=== PATIENT | male | born 1955 | race Caucasian/White ===

== ENCOUNTER 2020-11-26 09:58 | Outpatient (CLI) | payer OTHER, SELFPAY ==
--- NOTE | ~2020-11-26 | CT_ITS ---
EXAMINATION: CT diagnostic chest wo con DATE: 11/26/2020 10:57 INDICATION: Redness of breath with cough. Abnormal findings on diagnostic imaging. TECHNIQUE: Computed tomography (CT) of the chest was performed without intravenous contrast. The dose -length product was 327.39 mGy-cm. Automated exposure control and iterative reconstruction technique were employed. COMPARISON: None FINDINGS: No significant pleural or pericardial effusion. No thoracic lymphadenopathy. There is ather osclerosis of the aorta and coronary arteries. The upper abdomen is unremarkable. There is mild emphy sema. There is apical pleural thickening/scarring. There is calcified granuloma in the right lower lo be. There are small scattered subpleural nodules measuring 2 mm or less, likely benign. No pneumothor ax. Mild thoracic spondylosis. No lytic or blastic lesions. IMPRESSION: 1. No significant thoracic abnormality. Small subpleural nodules are likely benign. Consider follow-u p CT in 12 months. Reviewed, dictated and finalized at location A. IMPRESSION: 1. No significant thoracic abnormality. Small subpleural nodules are likely brendan ign. Consider follow-up CT in 12 months.
== END 2020-11-26 09:59 | disposition home or self-care (01) ==
PROVIDERS: PCP Internal Medicine; Visit Provider Internal Medicine
DX: R91.8 Other nonspecific abnormal finding of lung field (principal)
CPT/HCPCS: 71250

== ENCOUNTER 2024-10-15 11:47 | Outpatient (CLI) | payer MEDICARE, OTHER, SELFPAY ==
--- NOTE | ~2024-10-15 | PE_ITS ---
EXAMINATION: PET skull to mid thigh DATE: 10/15/2024 14:25 INDICATION: Pulmonary nodule TECHNIQUE: Blood glucose level was 93 mg/dL. 10.493 mCi of 18-fluorodeoxyglucose (18-FDG) was adminis tered i.v. Low dose computed tomography (CT) images were acquired from the base of the brain to the p roximal thighs for attenuation correction and anatomic localization. Positron emission tomography (PE T) images were acquired in the same distribution beginning 51 minutes after injection. Images includi ng fused PET/CT images were reconstructed in axial, coronal, and sagittal planes. Automated exposure control technique was employed. The dose-length product was 1369.60mGy-cm. COMPARISON: Chest CT dated 11/26/2020 FINDINGS: Head/neck: There is symmetric increased activity in the oral cavity, palatine tonsils, parotid glands, submandi bular glands, laryngeal muscles and ocular muscles without CT correlate, likely physiologic. No patho logically enlarged or FDG avid cervical lymphadenopathy. There are 5 subcentimeter foci of increased uptake along the skin most prominent overlying the left parotid gland with maximal SUV of 5.2 which a re without correlate on the CT imaging. Chest: Mild emphysema. There are 3 new FDG avid pulmonary nodules with relatively smooth margins measuring 1 2 mm, 10 mm and 6 mm in the superior segment of the right lower lobe with maximal SUV of 6.9. Calcifi ed nodule consistent with old granulomatous disease in the posterior basilar segment of the right low er lobe. No other pulmonary nodules, pulmonary edema or pleural effusion. Heart size is normal. Ather osclerotic coronary artery calcifications. No pericardial or pleural effusion. There is FDG avid righ t hilar and.. .Mediastinal lymphadenopathy with largest lymph node/cluster of lymph nodes in the subc arinal region measuring 4.4 x 2.4 cm with maximal SUV of 21.9. Abdomen/pelvis/proximal thighs: There is mild uptake extending along the distalmost esophagus with maximal SUV of 4.1. There are 3 pe rigastric lymph nodes at the cardia of the stomach largest measuring 2.5 x 1.6 cm with maximal SUV of 7.0. There is a subtle approximately 2.5 cm hypodense and FDG avid mass in the right hepatic lobe wi th maximal SUV of 12.3. There is a second approximately 2.0 cm focus of increased uptake with maximal SUV of 11.6 at the caudate lobe without discernible correlate on the CT imaging. Enlargement of FDG avid portacaval lymph node which measures 3.2 x 2.3 cm with maximal SUV of 12.9. Cholecystectomy clip s at the gallbladder fossa. The pancreas, spleen and bilateral adrenal glands are normal. Physiolog ic renal accumulation and excretion of FDG activity in the kidneys, bladder and along portions of ure ters. Photopenic defect associated with a 4.5 cm low-attenuation left renal cyst. 6.2 x 2.5 cm divert iculum arising from the left side of the bladder. Prostatomegaly measuring 5.1 x 4.2 cm. There is het erogeneous uptake in the prostate with 3 foci of more intense uptake to the largest and most intense at the left peripheral zone with maximal SUV of 25.7 raising concern for primary prostate cancer. Mil d uptake scattered throughout the bowels without radiologic correlate, also likely physiologic. There is moderate colonic diverticulosis with a descending and sigmoid colon predominance and without zeferino cent inflammatory change to suggest diverticulitis. Musculoskeletal: Moderate cervical, thoracic and lumbar spondylosis. No suspicious lytic, blastic or abnormally FDG av id bone lesions. IMPRESSION: 1. Cluster of a 3 small FDG avid pulmonary nodules measuring 6-12 mm in the superior segment of the r ight upper lobe which could be infectious, primary malignant or metastatic in etiology. 2. Multiple enlarged and FDG avid right hilar and mediastinal lymph nodes concerning for metastatic d isease with differential including lymphoma. 3. Mild uptake along the distalmost esophagus with 3 nearby enlarged and FDG avid perigastric nodes w hich raises possibility of primary esophageal cancer and local metastatic disease. 4. 2 FDG avid hepatic masses which along with a FDG avid enlarged periportal lymph node suspicious fo r metastatic disease. The right hepatic lobe lesion would likely be the optimal site for biopsy utili zing ultrasound guidance. 5. Prostatomegaly with focal prominent increased uptake in the left peripheral zone raising concern f or prostate cancer which could represent the primary lesion but could also be coincidental. Correlate with PSA level and depending on results from liver biopsy could consider additional prostate biopsy. 6. A few indeterminate small FDG avid skin lesions without correlate on CT at the posterior neck and the most intense overlying the left parotid gland. Correlate with physical exam. Reviewed, dictated and finalized at location A. IMPRESSION: 1. Cluster of a 3 small FDG avid pulmonary nodules measuring 6-12 mm in the sup erior segment of the right upper lobe which could be infectious, primary malign ant or metastatic in etiology. 2. Multiple enlarged and FDG avid right hilar and mediastinal lymph nodes toshia rning for metastatic disease with differential including lymphoma. 3. Mild uptake along the distalmost esophagus with 3 nearby enlarged and FDG av id perigastric nodes which raises possibility of primary esophageal cancer and local metastatic disease. 4. 2 FDG avid hepatic masses which along with a FDG avid enlarged periportal ly mph node suspicious for metastatic disease. The right hepatic lobe lesion would likely be the optimal site for biopsy utilizing ultrasound guidance. 5. Prostatomegaly with focal prominent increased uptake in the left peripheral zone raising concern for prostate cancer which could represent the primary lesi on but could also be coincidental. Correlate with PSA level and depending on re sults from liver biopsy could consider additional prostate biopsy. 6. A few indeterminate small FDG avid skin lesions without correlate on CT at t he posterior neck and the most intense overlying the left parotid gland. Correl ate with physical exam.
== END 2024-10-15 11:48 | disposition home or self-care (01) ==
PROVIDERS: PCP Internal Medicine; Visit Provider Internal Medicine
DX: R91.8 Other nonspecific abnormal finding of lung field (principal); N40.0 Benign prostatic hyperplasia without lower urinary tract symptoms
CPT/HCPCS: 78815; A9552